=== PATIENT | female | born 1955 | race Two or more races ===

== ENCOUNTER 2018-02-11 13:50 | Outpatient (CLI) | payer OTHER ==
[~2018-02-11 13:50] MED LIST: AMOX1TAB12 PO
== END 2018-02-11 14:06 | disposition home or self-care (01) ==
LOC: RAD 13:50 → MRI 14:15
DX: M25.561 Pain in right knee (principal); M25.562 Pain in left knee
CPT/HCPCS: 73721

== ENCOUNTER 2018-04-05 13:05 | Outpatient (CLI) | payer OTHER | END 2018-04-05 14:13 | disposition home or self-care (01) | LOC: RAD 13:05 | DX: R07.89 Other chest pain (principal); Z01.818 Encounter for other preprocedural examination ==

== ENCOUNTER → 2018-04-05 | Outpatient (CLI) | payer OTHER | END | disposition home or self-care (01) | LOC: EKG 14:32 | DX: I10 Essential (primary) hypertension (principal) ==

== ENCOUNTER 2019-01-03 15:12 | Outpatient (CLI) | payer OTHER | END 2019-01-03 15:14 | disposition home or self-care (01) | LOC: MRI 15:12 | DX: S92.201A Fracture of unspecified tarsal bone(s) of right foot, initial encounter for closed fracture (principal); S93.421A Sprain of deltoid ligament of right ankle, initial encounter | CPT/HCPCS: 73721 ==

== ENCOUNTER → 2020-06-03 12:00 | Outpatient (CLI) | payer OTHER | END | disposition home or self-care (01) | LOC: PPH VACUNA 12:00 | DX: Z23 Encounter for immunization (principal) ==